=== PATIENT | female | born 1945 | race Caucasian/White ===

== ENCOUNTER 2020-01-01 07:31 | Inpatient (IN) ==
[2020-01-01] MEDS ORDERED: *HR* Heparin 5,000 UNIT/ML VIAL ONE (07:36)
[2020-01-01] MEDS ORDERED: Lidocaine Jelly 6ml 1 APPL/6 ML JEL.PF.APP ONE (07:43)
[2020-01-01] MEDS ORDERED: *HR* Vasopressin 20 UNIT/ML VIAL ONE (07:43)
[2020-01-01] MEDS ORDERED: Ringers Solution, Lactated 1,000 ML IVC SCH (07:45)
[2020-01-01] MEDS ORDERED: Clindamycin 900 MG/50 ML 900 MG/50 ML IV.SOLN IVPB ONE (07:45)
[2020-01-01] MEDS ORDERED: *HR* Meperidine 25 MG/ML SYRINGE IVP PRN (08:09)
[2020-01-01] MEDS ORDERED: *HR* HYDROmorphone PF 0.5 MG/0.5 ML SYRINGE IVP PRN (08:09)
[2020-01-01] MEDS ORDERED: *HR* HYDROcodone/Acet 10/325 mg TABLET PO PRN (08:09)
[2020-01-01] MEDS ORDERED: Ondansetron 4 MG/2 ML VIAL IVP PRN (08:09)
[2020-01-01] MEDS ORDERED: Ondansetron ODT 4 MG TAB.RAPDIS SL ONE (08:09)
[2020-01-01] MEDS ORDERED: *HR* FentaNYL (PF) 100 MCG/2 ML VIAL IVP PRN (08:09)
[2020-01-01] MEDS ORDERED: Famotidine 20 MG/2 ML VIAL IVP ONE (08:09)
[2020-01-01] MEDS ORDERED: *HR* Promethazine 25 MG/ML VIAL IVP PRN (08:09)
[2020-01-01] MEDS ORDERED: Acetaminophen IV 1,000 MG/100 ML INFUS..BTL IVPB ONE (08:12)
[2020-01-01] MEDS ORDERED: D5% in Water 1,000 ML IVC PRN (13:38)
[2020-01-01] MEDS ORDERED: Naloxone 0.4 MG/ML INJ IVP PRN (13:38)
[2020-01-01] MEDS ORDERED: *HR* Dextrose 50 % in Water (Vial) 50 ML VIAL IVP PRN (13:38)
[2020-01-01] MEDS ORDERED: *HR* LORazepam 0.5 MG TABLET PO PRN (13:38)
[2020-01-01] MEDS ORDERED: Dextrose Gel 15 GM/37.5 ML TUBE PO PRN ×2 (13:38)
[2020-01-01] MEDS: *HR* Heparin 5,000 UNIT/ML VIAL SQ SCH ×2 (14:37→21:15)
[2020-01-01] MEDS: 0.9 % Sodium Chloride 1,000 ML IVC SCH (14:37)
[2020-01-01] MEDS: *HR* HYDROcodone/Acet 5/325 mg TABLET PO PRN (14:53)
[2020-01-01] MEDS: Ipratropium/Albuterol Neb 3 ML IH SCH ×3 (15:51→23:21)
[2020-01-01] MEDS: Gabapentin 300 MG CAPSULE PO SCH ×2 (17:03→21:10)
[2020-01-01] MEDS: Ketorolac 15 MG/ML VIAL IVP SCH (17:03)
[2020-01-01] MEDS: Insulin LISPRO 300 UNITS/3 ML VIAL SQ SCH (17:05)
[2020-01-01] MEDS ORDERED: Insulin LISPRO 300 UNITS/3 ML VIAL SQ SCH (21:00)
[2020-01-01] MEDS: QUEtiapine Fumarate 100 MG TABLET PO SCH (21:09)
[2020-01-01] MEDS: Famotidine 20 MG TABLET PO SCH (21:09)
[2020-01-01] MEDS: Sennosides/Docusate Sodium TABLET PO SCH (21:10)
[2020-01-01] MEDS: *HR* LORazepam 1 MG TABLET PO SCH (21:10)
[2020-01-01] MEDS: INSULIN DEGLUDEC 50 UNIT SQ SCH (21:11)
[2020-01-01] MEDS: Aspirin 81 MG TAB.CHEW PO SCH (21:55)
[2020-01-02] MEDS: Ketorolac 15 MG/ML VIAL IVP SCH ×5 (00:30→23:48)
[2020-01-02] MEDS: 0.9 % Sodium Chloride 1,000 ML IVC SCH (03:49)
[2020-01-02] MEDS: Ipratropium/Albuterol Neb 3 ML IH SCH ×6 (04:02→23:15)
[2020-01-02] MEDS: *HR* Heparin 5,000 UNIT/ML VIAL SQ SCH ×3 (06:28→21:06)
[2020-01-02 06:47] LABS: Hematocrit 36.7 % (35.3-44.9); Mean Corpuscular HGB Conc 31.9 g/dL (31.6-35.5); Mean Corpuscular Hemoglobin 30.8 pg (28.0-33.3); Mean Corpuscular Volume 96.6 fL (83.0-100.0); Mean Platelet Volume 9.8 fL (9.4-12.4); Platelet Count 368 K/mcL (140-400); Red Cell Distribution Width 14.2 % (11.5-14.5)
[2020-01-02 06:48] LABS: Hemoglobin 11.7 g/dL (11.5-15.4); White Blood Count 22.3 K/mcL (4.3-11.1)
[2020-01-02 07:08] LABS: % Iron Saturation 15 % (15-50); BUN/Creatinine Ratio 20 (6-26); Blood Urea Nitrogen 12 mg/dL (8-23); Calcium 8.7 mg/dL (8.6-10.3); Carbon Dioxide 27 mEq/L (23-29); Chloride 103 mEq/L (98-107); Glucose 371 mg/dL (70-105); Iron 44 mcg/dL (50-170); Magnesium 1.8 mg/dL (1.6-2.6); Osmolality,Calculated 297 (280-300); Potassium 4.1 mEq/L (3.5-5.1); Sodium 136 mEq/L (136-145); Transferrin 215 mg/dL (203-362); eGFR For African Americans > 60 (> 60); eGFR For Non-African Americans > 60 (> 60)
[2020-01-02] MEDS: Sennosides/Docusate Sodium TABLET PO SCH ×2 (08:11→21:02)
[2020-01-02] MEDS: Famotidine 20 MG TABLET PO SCH ×2 (08:11→21:01)
[2020-01-02] MEDS: Gabapentin 300 MG CAPSULE PO SCH ×3 (08:11→21:01)
[2020-01-02] MEDS: *HR* HYDROcodone/Acet 5/325 mg TABLET PO PRN ×2 (08:11→23:47)
[2020-01-02] MEDS: Insulin LISPRO 300 UNITS/3 ML VIAL SQ SCH ×4 (08:52→21:06)
[2020-01-02] MEDS ORDERED: NON-FORMULARY MEDICATION 1 EACH EACH (Umeclidinium Brm/Vilanterol Tr [Anoro Ellipta 62.5-2 IH SCH (09:00)
[2020-01-02 10:53] LABS: Estimated Average Glucose 180 mg/dl
[2020-01-02] MEDS: Aspirin 81 MG TAB.CHEW PO SCH (21:01)
[2020-01-02] MEDS: QUEtiapine Fumarate 100 MG TABLET PO SCH (21:01)
[2020-01-02] MEDS: *HR* LORazepam 1 MG TABLET PO SCH (21:02)
[2020-01-02] MEDS: INSULIN DEGLUDEC 50 UNIT SQ SCH (21:10)
[2020-01-03] MEDS: Ipratropium/Albuterol Neb 3 ML IH SCH ×6 (03:54→23:35)
[2020-01-03] MEDS: *HR* HYDROcodone/Acet 5/325 mg TABLET PO PRN (04:28)
[2020-01-03] MEDS: Ketorolac 15 MG/ML VIAL IVP SCH ×3 (06:17→17:04)
[2020-01-03] MEDS: *HR* Heparin 5,000 UNIT/ML VIAL SQ SCH ×3 (06:18→21:49)
[2020-01-03] MEDS: Insulin LISPRO 300 UNITS/3 ML VIAL SQ SCH ×4 (09:12→21:51)
[2020-01-03] MEDS: Sennosides/Docusate Sodium TABLET PO SCH ×2 (09:13→21:48)
[2020-01-03] MEDS: Gabapentin 300 MG CAPSULE PO SCH ×3 (09:13→21:48)
[2020-01-03] MEDS: Famotidine 20 MG TABLET PO SCH ×2 (09:13→21:48)
[2020-01-03] MEDS: polyethylene glycoL 3350 17 GM POWD.PACK PO SCH (12:21)
[2020-01-03] MEDS: Aspirin 81 MG TAB.CHEW PO SCH (21:46)
[2020-01-03] MEDS: QUEtiapine Fumarate 100 MG TABLET PO SCH (21:48)
[2020-01-03] MEDS: *HR* LORazepam 1 MG TABLET PO SCH (21:49)
[2020-01-03] MEDS: INSULIN DEGLUDEC 60 UNIT SQ SCH (21:51)
[2020-01-04] MEDS: Ketorolac 15 MG/ML VIAL IVP SCH ×4 (00:51→17:37)
[2020-01-04] MEDS: Ipratropium/Albuterol Neb 3 ML IH SCH ×5 (04:09→19:58)
[2020-01-04] MEDS: *HR* Heparin 5,000 UNIT/ML VIAL SQ SCH ×3 (05:11→21:43)
[2020-01-04 05:22] LABS: Hematocrit 37.6 % (35.3-44.9); Hemoglobin 11.6 g/dL (11.5-15.4); Mean Corpuscular HGB Conc 30.9 g/dL (31.6-35.5); Mean Corpuscular Hemoglobin 30.9 pg (28.0-33.3); Platelet Count 353 K/mcL (140-400); Red Blood Count 3.76 M/mcL (3.82-4.97); Red Cell Distribution Width 14.6 % (11.5-14.5); White Blood Count 17.7 K/mcL (4.3-11.1)
[2020-01-04 05:33] LABS: BUN/Creatinine Ratio 25 (6-26); Blood Urea Nitrogen 15 mg/dL (8-23); Calcium 9.1 mg/dL (8.6-10.3); Carbon Dioxide 30 mEq/L (23-29); Chloride 104 mEq/L (98-107); Glucose 150 mg/dL (70-105); Magnesium 2.1 mg/dL (1.6-2.6); Osmolality,Calculated 290 (280-300); Potassium 4.6 mEq/L (3.5-5.1); Sodium 138 mEq/L (136-145); eGFR For African Americans > 60 (> 60); eGFR For Non-African Americans > 60 (> 60)
[2020-01-04] MEDS: Gabapentin 300 MG CAPSULE PO SCH ×3 (08:18→21:47)
[2020-01-04] MEDS: polyethylene glycoL 3350 17 GM POWD.PACK PO SCH (08:18)
[2020-01-04] MEDS: Insulin LISPRO 300 UNITS/3 ML VIAL SQ SCH ×4 (08:19→21:44)
[2020-01-04] MEDS: Famotidine 20 MG TABLET PO SCH ×2 (08:19→21:47)
[2020-01-04] MEDS: Sennosides/Docusate Sodium TABLET PO SCH ×2 (08:19→21:46)
[2020-01-04 14:14] LABS: Bilirubin,Urine Negative (Negative); Blood,Urine Negative (Negative); Clarity,Urine Clear (Clear); Color,Urine Light-Yellow (Yellow); Glucose,Urine (UA) Normal (Normal); Ketones,Urine Negative (Negative); Leukocyte Esterase,Urine Negative (Negative); Nitrite,Urine Negative (Negative); PH,Urine 6.5 pH Units (5.0-8.0); Protein,Urine Negative (Neg-Trace); Specific Gravity,Urine 1.008 (1.010-1.025); Urobilinogen,Urine Normal (Normal)
[2020-01-04] MEDS: QUEtiapine Fumarate 100 MG TABLET PO SCH (21:46)
[2020-01-04] MEDS: Aspirin 81 MG TAB.CHEW PO SCH (21:46)
[2020-01-04] MEDS: INSULIN DEGLUDEC 60 UNIT SQ SCH (21:47)
[2020-01-04] MEDS: *HR* LORazepam 1 MG TABLET PO SCH (21:47)
[2020-01-05] MEDS: Ipratropium/Albuterol Neb 3 ML IH SCH ×7 (00:03→23:54)
[2020-01-05] MEDS: Ketorolac 15 MG/ML VIAL IVP SCH ×4 (00:45→18:20)
[2020-01-05] MEDS: *HR* Heparin 5,000 UNIT/ML VIAL SQ SCH ×3 (05:06→20:38)
[2020-01-05 07:44] LABS: Hematocrit 37.1 % (35.3-44.9); Hemoglobin 11.9 g/dL (11.5-15.4); Mean Corpuscular HGB Conc 32.1 g/dL (31.6-35.5); Mean Corpuscular Hemoglobin 31.3 pg (28.0-33.3); Mean Corpuscular Volume 97.6 fL (83.0-100.0); Platelet Count 398 K/mcL (140-400); Red Cell Distribution Width 14.6 % (11.5-14.5); White Blood Count 16.8 K/mcL (4.3-11.1)
[2020-01-05] MEDS: Gabapentin 300 MG CAPSULE PO SCH ×3 (08:00→20:39)
[2020-01-05] MEDS: polyethylene glycoL 3350 17 GM POWD.PACK PO SCH (08:00)
[2020-01-05] MEDS: Famotidine 20 MG TABLET PO SCH ×2 (08:00→20:39)
[2020-01-05] MEDS: Sennosides/Docusate Sodium TABLET PO SCH ×2 (08:00→20:38)
[2020-01-05] MEDS: Insulin LISPRO 300 UNITS/3 ML VIAL SQ SCH ×4 (08:01→20:38)
[2020-01-05] MEDS: levoFLOXacin 500 MG TABLET PO SCH (11:14)
[2020-01-05] MEDS: QUEtiapine Fumarate 100 MG TABLET PO SCH (20:38)
[2020-01-05] MEDS: INSULIN DEGLUDEC 60 UNIT SQ SCH (20:39)
[2020-01-05] MEDS: *HR* LORazepam 1 MG TABLET PO SCH (20:39)
[2020-01-05] MEDS: Aspirin 81 MG TAB.CHEW PO SCH (20:39)
[2020-01-06] MEDS: Ketorolac 15 MG/ML VIAL IVP SCH ×4 (00:09→16:38)
[2020-01-06] MEDS: Ipratropium/Albuterol Neb 3 ML IH SCH ×6 (03:29→23:21)
[2020-01-06] MEDS: *HR* Heparin 5,000 UNIT/ML VIAL SQ SCH ×3 (06:02→20:26)
[2020-01-06] MEDS: polyethylene glycoL 3350 17 GM POWD.PACK PO SCH (07:50)
[2020-01-06] MEDS: levoFLOXacin 500 MG TABLET PO SCH (07:50)
[2020-01-06] MEDS: Sennosides/Docusate Sodium TABLET PO SCH ×2 (07:50→20:25)
[2020-01-06] MEDS: Gabapentin 300 MG CAPSULE PO SCH ×3 (07:50→20:26)
[2020-01-06] MEDS: Famotidine 20 MG TABLET PO SCH ×2 (07:50→20:25)
[2020-01-06] MEDS: Insulin LISPRO 300 UNITS/3 ML VIAL SQ SCH ×4 (07:52→20:27)
[2020-01-06] MEDS: Aspirin 81 MG TAB.CHEW PO SCH (20:25)
[2020-01-06] MEDS: INSULIN DEGLUDEC 60 UNIT SQ SCH (20:25)
[2020-01-06] MEDS: QUEtiapine Fumarate 100 MG TABLET PO SCH (20:26)
[2020-01-06] MEDS: *HR* LORazepam 1 MG TABLET PO SCH (20:26)
[2020-01-06] MEDS: Ondansetron 4 MG/2 ML VIAL IVP PRN (23:41)
[2020-01-06] MEDS: *HR* HYDROcodone/Acet 5/325 mg TABLET PO PRN (23:41)
[2020-01-07] MEDS: Ipratropium/Albuterol Neb 3 ML IH SCH ×5 (03:50→20:42)
[2020-01-07] MEDS: *HR* Heparin 5,000 UNIT/ML VIAL SQ SCH ×3 (05:41→20:08)
[2020-01-07] MEDS: Famotidine 20 MG TABLET PO SCH ×2 (07:47→20:09)
[2020-01-07] MEDS: polyethylene glycoL 3350 17 GM POWD.PACK PO SCH (07:47)
[2020-01-07] MEDS: levoFLOXacin 500 MG TABLET PO SCH (07:47)
[2020-01-07] MEDS: Gabapentin 300 MG CAPSULE PO SCH ×3 (07:47→20:09)
[2020-01-07] MEDS: Insulin LISPRO 300 UNITS/3 ML VIAL SQ SCH ×4 (07:48→21:04)
[2020-01-07] MEDS: Sennosides/Docusate Sodium TABLET PO SCH ×2 (07:48→20:09)
[2020-01-07] MEDS: Bisacodyl 10 MG RECTAL SUPPOSITORY RC SCH (11:19)
[2020-01-07] MEDS: Ondansetron 4 MG/2 ML VIAL IVP PRN (20:08)
[2020-01-07] MEDS: Aspirin 81 MG TAB.CHEW PO SCH (20:09)
[2020-01-07] MEDS: QUEtiapine Fumarate 100 MG TABLET PO SCH (20:09)
[2020-01-07] MEDS: *HR* LORazepam 1 MG TABLET PO SCH (20:09)
[2020-01-07] MEDS: *HR* HYDROcodone/Acet 5/325 mg TABLET PO PRN (20:09)
[2020-01-07] MEDS: INSULIN DEGLUDEC 60 UNIT SQ SCH (20:10)
[2020-01-07] MEDS ORDERED: Insulin DETEMIR 100 UNIT/ML X5UNITS SQ SCH (21:00)
[2020-01-08] MEDS: Ipratropium/Albuterol Neb 3 ML IH SCH ×4 (00:02→11:28)
[2020-01-08] MEDS: *HR* Heparin 5,000 UNIT/ML VIAL SQ SCH (04:03)
[2020-01-08] MEDS: *HR* HYDROcodone/Acet 5/325 mg TABLET PO PRN (04:03)
[2020-01-08] MEDS: Sennosides/Docusate Sodium TABLET PO SCH (08:55)
[2020-01-08] MEDS: levoFLOXacin 500 MG TABLET PO SCH (08:55)
[2020-01-08] MEDS: Gabapentin 300 MG CAPSULE PO SCH (08:55)
[2020-01-08] MEDS: polyethylene glycoL 3350 17 GM POWD.PACK PO SCH (08:55)
[2020-01-08] MEDS: Famotidine 20 MG TABLET PO SCH (08:55)
[2020-01-08] MEDS: Insulin LISPRO 300 UNITS/3 ML VIAL SQ SCH ×2 (08:56→11:34)
[2020-01-08] MEDS: Bisacodyl 10 MG RECTAL SUPPOSITORY RC SCH (08:56)
[2020-01-08 11:44] VITALS: BP 110/55
== END 2020-01-08 15:05 | disposition home or self-care (01) | DRG 165 ==
LOC: SAMDAY 07:31 → 2NNU 13:19
PROVIDERS: ADMIT Thoracic Surgery (Cardiothoracic Vascular Surgery); ATTEND Thoracic Surgery (Cardiothoracic Vascular Surgery)